=== PATIENT | male | born 1950 | race Caucasian/White ===

== ENCOUNTER 2018-11-20 05:28 | Inpatient (IN) | payer OTHER ==
[2018-11-06 10:17] LABS: HEMATOCRIT 41.3 % (42.0-52.0); HEMOGLOBIN 14.2 gm/dL (14.0-18.0); MCH 32.2 pg (26.0-34.0); MCHC 34.3 g/dL (28.0-37.0); MCV 93.9 fL (80.0-100.0); RBC 4.4 mil/uL (4.50-6.00); RDW 12.7 % (10.5-14.5); WBC 5.8 thou/uL (4.0-11.0)
[2018-11-06 10:23] LABS: URINE BILIRUBIN NEGATIVE (Negative); URINE BLOOD NEGATIVE (Negative); URINE CLARITY CLEAR; URINE COLOR YELLOW; URINE GLUCOSE-RANDOM* NEGATIVE (Negative); URINE KETONES NEGATIVE (Negative); URINE LEUKOCYTES-REFLEX NEGATIVE (Negative); URINE NITRITE-REFLEX NEGATIVE (Negative); URINE PROTEIN (DIPSTICK) NEGATIVE (Negative); URINE UROBILINOGEN 0.2 E.U./dl (0.2-1.0)
[2018-11-06 10:30] LABS: APTT 27.3 Seconds (24.5-32.8)
[2018-11-06 10:34] LABS: ALBUMIN 3.6 g/dL (3.4-5.0); CALCIUM 10.2 mg/dL (8.5-10.1); POTASSIUM 4.2 mmol/L (3.5-5.1); TOTAL BILIRUBIN 0.3 mg/dL (<0.1-1.0)
--- NOTE | 2018-11-06 16:23 | EKG ---
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 : 1950 Requested By: David Eubanks Order Number: [id number] MD: Richmond Mcnulty Measurements Intervals [place] Rate: 51 P: -10 ND: 211 QRS: 1 QRSD: 101 T: 11 QT: 412 QTc: 380 Interpretive Statements Sinus bradycardia Abnormal R-wave progression, early transition Compared to ECG 03/25/2016 13:37:23 No significant change was found Electronically Signed On 11-06-2018 16:23:01 CDT by Richmond Mcnulty [email or web address] <ELECTRONICALLY SIGNED> By: Richmond Mcnulty MD, [facility] 11/06/18 1623 D: 07/1 101 Richmond Mcnulty MD, FACC /EPI
[2018-11-20] VITALS (9 sets, daily range): BP systolic 85–133; BP diastolic 45–69
[~2018-11-20] VITALS: Ht 180.3 cm; Wt 89.8 kg
[~2018-11-20 05:28] MED LIST: ASPIR 8181 M1 PO; ASPIRIN325 PO; CARAFATE1 GM PO; COCONUT OIL1000 MG PO; COREG25 MG PO; COREG3.125 MG PO; EFFIENT10 MG PO; FISH OIL 1,001000 M2 PO; FISH OIL 1,001000 MG PO; FLEXERIL PO; GARLIC OIL1000 MG; ICAPS TABLET1 EACH PO; LIPITOR 20 MG T20 M1 PO; LIPITOR40 MG PO; LISINOPRIL5 MG PO; MEDROLDOSEPACK PO; MULTIVITAMINS1 EAC7; NITROGLYCERIN0.4 MG SUBLING; NORCO 5-325 TA1 EACH PO; OMEPRAZOLE; PLAVIX 75 MG TA75 M1 PO; PROTONIX 20 MG20 M1 PO; PROTONIX40 M4 PO; RANITIDINE HCL300 MG PO; TRIAMCINOLONE A80 G2 TOP; ZANTAC 150MG T150 M1 PO; ZYRTEC10 M5 PO
[2018-11-21] VITALS (13 sets, daily range): BP systolic 94–110; BP diastolic 42–66
[2018-11-21 05:54] LABS: HEMATOCRIT 35.6 % (42.0-52.0); HEMOGLOBIN 12.2 gm/dL (14.0-18.0); MCH 32.5 pg (26.0-34.0); MCHC 34.3 g/dL (28.0-37.0); MCV 94.8 fL (80.0-100.0); RBC 3.76 mil/uL (4.50-6.00); RDW 12.4 % (10.5-14.5)
[2018-11-21 06:10] LABS: CALCIUM 8.8 mg/dL (8.5-10.1); POTASSIUM 4.3 mmol/L (3.5-5.1)
--- NOTE | 2018-11-21 11:12 | O ---
[facility] [place] [address] OPERATIVE REPORT Name: MALLORY MULLEN JR Room #: 241-P ADM IN M.R.#: [id number] Admission: 11/20/18 Attend Phys: David Eubanks MD Discharge: Date of : 48 Report #: [id number] THIS REPORT FOR: //name// CC: Boom Eubanks DATE OF SERVICE: 11/20/2018 PREOPERATIVE DIAGNOSIS: Left carotid artery stenosis. POSTOPERATIVE DIAGNOSIS: Left carotid artery stenosis. OPERATION: Left carotid endarterectomy with patch closure. SURGEON: David Eubanks MD ANESTHESIA: General. INDICATIONS: The patient is a 68-year-old patient has at least a 70% stenosis in the left internal carotid. I believe the stenosis is a bit tighter based on my view of the axial CT scan. In any event, this is an asymptomatic stenosis. The patient is known to me from previous carotid surgery several years ago. The contralateral side is widely patent. FINDINGS AND TECHNIQUE: After general anesthesia was established, an oblique left neck incision was made. Common facial vein was divided. Common internal and external carotid arteries and the superior thyroid artery were identified and controlled. 10,000 units of heparin were given. Continuous electroencephalographic monitoring was performed during the operation when the carotid vessels were occluded, no EEG changes were noted. The carotid arteriotomy was made. The endarterectomy was performed without creating a distal flap. Neointima was inspected and all loose debris was removed. Tacking sutures were placed at the transition zone. When the endarterectomy was felt to be satisfactory, the arteriotomy was closed with running Prolene and thin walled pericardial patch. Prior to finishing the closure, the carotid vessels were backbled and the artery was irrigated with heparinized saline. Flow was established first through the external, then the internal carotid artery. 50 mg of protamine was given to reverse the heparin. Hemostasis was satisfactory. Wound was irrigated with antibiotic solution. The drain was brought out through [facility] [address] [address] OPERATIVE REPORT Name: MALLORY MULLEN Room #: 241-P [facility] IN ..#: [id number] Admission: 11/20/18 Attend Phys: David Eubanks MD Discharge: Date of : 48 Report #: [id number] the bottom pole of the incision and the remainder of the incision was closed in layers. PEDRO dressing was applied. The patient was taken to the recovery area in satisfactory condition having tolerated the procedure well and his neurologic status that was monitored. All counts were reported as correct. <ELECTRONICALLY SIGNED> By: David Eubanks MD 11/21/18 1112 [id number] [id number] David Eubanks MD /nt
--- NOTE | 2018-11-21 13:07 | PATH ---
[facility] [address] [place] [address] PATHOLOGY RPT PROCEDURE Name: MALLORY MULLEN JR Room #: 241-P [facility] IN M.R.#: [id number] Admission: 11/20/18 Date of : 48 Discharge: Report #: [id number] Path Case #: [id number] [facility] Accession Number: [id number] . 01 Material submitted: . carotid body - LEFT CAROTID ARTERY PLAQUE. Modifiers: right . 01 Clinical history: . Carotid stenosis . 02 Diagnosis: Arterial plaque, left carotid, endarterectomy: - Atheromatous plaque with focal calcifications. (SKM:pit; 11/21/2018) QTP/11/21/2018 . 02 Electronically signed: . Lacho Talley MD, Pathologist NPI- [id number] . 01 Gross description: . Received in formalin labeled "Shan, Mallory Jr, left carotid artery plaque," is a roughly tubular segment of yellow-luna, rubbery tissue measuring 3.0 x 1.0 x 1.0 cm in greatest dimensions admixed with multiple smaller fragments of luna rubbery tissue measuring 1.2 x 0.7 x 0.1 cm in aggregate dimensions. Sectioning through the largest segment reveals yellow-luna to hemorrhagic, partially calcified cut surfaces. Interactive Developer sections of the largest segment and smaller fragments are submitted in cassette A1, following decalcification. (DAC; 11/20/2018) XDC/XDC . 02 Pathologist provided ICD-10: I65.21 . 02 CPT . 524025, 585599 Specimen Comment: A courtesy copy of this report has been sent to Specimen Comment: [phone], . Specimen Comment: Report sent to / DR GURROLA Performed at: [address] [id number] MD Jeronimo Fung MD Phone: [phone] Performed at: [address] [id number] [address] [address] PATHOLOGY RPT PROCEDURE Name: MALLORY MULLEN JR Room #: 241-P [facility] IN M.R.#: [id number] Admission: 11/20/18 Date of : 48 Discharge: Report #: [id number] Path Case #: [id number] MD Kerri Cullen MD Phone: [phone]
== END 2018-11-21 13:40 | disposition home or self-care (01) | DRG 39 ==
LOC: PRE 05:28 → ICU 05:35 → TBA 05:35 → PRE 06:49 → ICU 11:52 → PRE 14:35 → ICU 11-21 13:40
PROVIDERS: ADMIT Surgery Vascular Surgery
PROC: 03UL0KZ Supplement Left Internal Carotid Artery with Nonautologous Tissue Substitute, Open Approach (ICD-10-PCS; principal; 2018-11-20)
PROC: 03CL0ZZ Extirpation of Matter from Left Internal Carotid Artery, Open Approach (ICD-10-PCS; principal; 2018-11-20)
DX: I65.22 Occlusion and stenosis of left carotid artery (principal); Z79.82 Long term (current) use of aspirin; Z79.899 Other long term (current) drug therapy; Z88.6 Allergy status to analgesic agent; I10 Essential (primary) hypertension
CPT/HCPCS: 10078; 47375; 50010; 50101; 50386; 50417; 50455; 51751; 52279; 54118; 56524; 56526; 56528; 56533; 56534; 57254; 62110; 62900; 65020; 65040; 70005